=== PATIENT | male | born 1970 ===

== ENCOUNTER → 2019-02-06 | Outpatient (CLI) | payer OTHER ==
[2019-02-06 21:31] LABS: BASO % 0 % (0-3); EOS # 0.2 x10^3/uL (0.0-0.7); EOS % 2 % (0-3); HEMATOCRIT 44.6 % (39.0-53.0); HEMOGLOBIN 14.8 g/dL (13.0-17.5); LYMPH # 1.6 x10^3/uL (1.0-4.8); LYMPH % 11 % (24-48); MEAN CORPUSCULAR HEMOGLOBIN 28 pg (25-35); MEAN CORPUSCULAR HGB CONC 33 g/dL (31-37); MEAN CORPUSCULAR VOLUME 85 fL (79-100); MONO # 1.1 x10^3/uL (0.0-1.1); MONO % 8 % (0-9); NEUT # 11.3 x10^3uL (1.8-7.7); NEUT % 79 % (31-73); PLATELET COUNT 213 x10^3/uL (140-400); RED BLOOD COUNT 5.26 x10^6/uL (4.30-5.70); RED CELL DISTRIBUTION WIDTH 13.9 % (11.5-14.5); WHITE BLOOD COUNT 14.3 x10^3/uL (4.0-11.0)
== END | disposition home or self-care (01) ==
LOC: EEVIPCON 19:30 → LAB 19:30
DX: R50.9 Fever, unspecified (principal); R10.9 Unspecified abdominal pain
CPT/HCPCS: 36415; 85025